=== PATIENT | male | born 1950 | race Caucasian/White ===

== ENCOUNTER 2020-10-14 17:12 | Emergency (ER) | payer OTHER, MEDICAID ==
[~2020-10-14] VITALS: Ht 167.6 cm; Wt 61.2 kg
[2020-10-14 17:30] VITALS: BP_SYST 130
[2020-10-14] MEDS ORDERED: DIPH-TET-PERTUS Vaccine 0.5 ML VIAL (ADACEL) I.M. ONE (18:00)
[2020-10-14] MEDS ORDERED: BACITRACIN 1 GM OINT TP ONE (18:09)
[2020-10-14 19:46] VITALS: BP_SYST 130
== END 2020-10-14 19:46 | disposition home or self-care (01) ==
LOC: SED 17:12
DX: S01.01XA Laceration without foreign body of scalp, initial encounter (principal); M54.2 Cervicalgia; W16.522A Jumping or diving into swimming pool striking bottom causing other injury, initial encounter; Y93.11 Activity, swimming; Y92.89 Other specified places as the place of occurrence of the external cause; Y99.8 Other external cause status
CPT/HCPCS: 70450-TC; 72125-TC; 76376; 90715; 99285

== ENCOUNTER 2020-10-29 06:52 | Emergency (ER) | payer OTHER, MEDICAID ==
[~2020-10-29] VITALS: Ht 167.6 cm; Wt 61.2 kg
[2020-10-29 07:00] VITALS: BP_SYST 143
== END 2020-10-29 07:26 | disposition home or self-care (01) ==
LOC: SED 06:52
DX: S01.01XD Laceration without foreign body of scalp, subsequent encounter (principal); I10 Essential (primary) hypertension; W16.52 Jumping or diving into swimming pool striking bottom
CPT/HCPCS: 99281